=== PATIENT | male | born 1990 | race Two or more races ===

== ENCOUNTER 2017-11-12 21:45 | Emergency (ER) | payer MEDICAID, OTHER ==
[~2017-11-12] VITALS: Ht 180.3 cm; Wt 70.3 kg
[~2017-11-12 21:45] MED LIST: BUSP10TA3 PO; BUSP15TA3 PO; HYDR-3028 PO; LORA-259 PO
[2017-11-12 22:53] LABS: BASOPHILS # (AUTO) 0.1 K/uL (0.0-8.0); EOSINOPHILS # (AUTO) 0.1 K/uL (0.0-0.7); EOSINOPHILS % (AUTO) 2.1 % (0.0-7.0); HEMATOCRIT 35.1 % (36.7-47.1); HEMOGLOBIN 11.9 g/dL (12.5-16.3); LYMPHOCYTES # (AUTO) 2.4 K/uL (20.0-40.0); LYMPHOCYTES % (AUTO) 33.6 % (20.5-51.5); MEAN CORPUSCULAR HEMOGLOBIN 19.6 uug (23.8-33.4); MEAN CORPUSCULAR HGB CONC 34 g/dL (32.5-36.3); MEAN CORPUSCULAR VOLUME 58.1 fL (73.0-96.2); MONOCYTES # (AUTO) 0.5 K/uL (2.0-10.0); MONOCYTES % (AUTO) 7.1 % (0.0-11.0); NEUTROPHILS # (AUTO) 3.9 K/uL (1.8-8.9); NEUTROPHILS % (AUTO) 56.2 % (38.5-71.5); PLATELET COUNT (AUTO) 172 K/uL (152-348); RED BLOOD CELL COUNT(AUTO) 6.05 MIL/uL (4.06-5.63)
[2017-11-12 22:54] LABS: *BILIRUBIN,URIN NEGATIVE (NEGATIVE); *BLOOD, URINE NEGATIVE (NEGATIVE); *CLARITY,URINE CLEAR (CLEAR); *COLOR,URINE YELLOW (YELLOW); *KETONES,URINE NEGATIVE (NEGATIVE); *PROTEIN,URINE NEGATIVE (NEGATIVE); LEUKOCYTE ESTERASE ,URINE NEGATIVE (NEGATIVE); NITRITE, URINE NEGATIVE (NEGATIVE); UGLUCOSE NEGATIVE (NEGATIVE)
[2017-11-12 23:02] LABS: BILIRUBIN,TOTAL 1.1 mg/dL (0.2-1.0); POTASSIUM 3.6 mmol/L (3.5-5.1); TOTAL PROTEIN, SERUM 7.4 g/dL (6.4-8.2)
[2017-11-12 23:17] LABS: BACTERIA,URINE NONE SEEN /HPF (NONE SEEN); RBC,URINE 0-3 /HPF (0-3); WBC,URINE NONE SEEN /HPF (0-3)
[2017-11-12 23:18] LABS: MUCUS,URINE MODERATE /LPF (0-FEW); SQUAMOUS EPITHELIAL CELL,UR FEW /HPF (NONE SEEN)
--- NOTE | 2017-11-12 23:27 | NUR ---
Patient discharged to home in stable conditon. Written and verbal after care instructions given. Patient verbalizes understanding of instructions.
[2017-11-13 00:44] LABS: EOSINOPHILS % (MANUAL) 3 % (0-8); LYMPHOCYTES % (MANUAL) 35 % (20-40); MONOCYTES % (MANUAL) 11 % (2-10); NEUTROPHILS % (MANUAL) 51 % (42-75)
== END 2017-11-12 23:28 | disposition home or self-care (01) ==
LOC: ER 21:47
DX: F41.9 Anxiety disorder, unspecified (principal); R11.0 Nausea; Z79.899 Other long term (current) drug therapy
CPT/HCPCS: 36415; 71045; 85025; A4663